=== PATIENT | male | born 1980 | race Asian ===

== ENCOUNTER 2018-10-09 21:12 | Observation (INO) | payer OTHER ==
[2018-10-09] MEDS ORDERED: NS 1,000 ML IV ONE (21:54)
[2018-10-09] MEDS ORDERED: MAG HYDROX/AL HYDROX/SIMETH 30 ML UDCUP PO ONE (21:54)
[2018-10-09] MEDS ORDERED: LIDOCAINE 2% VISCOUS 15 ML UDCUP PO ONE (21:54)
[2018-10-09] MEDS ORDERED: ONDANSETRON 4 MG/2 ML VIAL IVP ONE (21:54)
[2018-10-09] MEDS ORDERED: HYOSCYAMINE SULFATE 0.125 MG TAB PO ONE (21:54)
--- NOTE | 2018-10-09 21:57 | EDPHY ---
H & P Stated Complaint: sent from .3days of N/V and abd pain.Constipation improved after colace Time Seen by Provider: 10/09/18 21:56 HPI/ROS: HPI CHIEF COMPLAINT: Abdominal pain HISTORY OF PRESENT ILLNESS: Patient is a 38-year-old male, otherwise healthy, presents emergency with abdominal pain. Patient reports epigastric right upper quadrant abdominal pain. He states this started Tuesday night he went out to dinner and had multiple drinks and ate a fish meal, he states that night when he got home he felt nauseous and had vomiting multiple times. Denies any chest pain or shortness of breath, denies fever, he thought he was constipated. He took Colace. He did have a bowel movement however continues to have intermittent abdominal pain. It is worse after he eats. Past Medical History: No significant medical history Past Surgical History: Denies significant surgical history Social History: Occasional alcohol use, denies illicit drugs or tobacco. 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 Exam Constitutional triage nursing summary reviewed, vital signs reviewed, awake/ alert. Eyes normal conjunctivae and sclera, EOMI, PERRLA. HENT normal inspection, atraumatic, moist mucus membranes, no epistaxis, neck supple/ no meningismus, no raccoon eyes. Respiratory clear to auscultation bilaterally, normal breath sounds, no respiratory distress, no wheezing. Cardiovascular rate normal, regular rhythm, no murmur, no edema, distal pulses normal. Gastrointestinal mildly tender in the epigastric right upper quadrant, no rebound, no guarding, normal bowel sounds, no distension, no pulsatile mass. Genitourinary no CVA tenderness. Musculoskeletal no midline vertebral tenderness, full range of motion, no calf swelling, no tenderness of extremities, no meningismus, good pulses, neurovascularly intact. Skin pink, warm, & dry, no rash, skin atraumatic. Neurologic awake, alert and oriented x 3, AAOx3, moves all 4 extremities equally, motor intact, sensory intact, CN II-XII intact, normal cerebellar, normal vision, normal speech. Psychiatric normal mood/affect. Heme/Lymph/Immune no lymphadenopathy. Differential Diagnosis: Differential diagnosis includes but is not limited to and in no particular order: Bowel obstruction, appendicitis, gallbladder disease, diverticulitis, colitis, enteritis, perforated viscus, gastritis, GERD , esophagitis, urinary tract infection, pyelonephritis, kidney stones Medical Decision Making: Plan for this patient IV establishment IV fluid bolus , basic labs, GI cocktail, ultrasound right upper quadrant re-evaluate. Re-evaluation: Ultrasound abdomen shows no evidence of acute inflammatory process called to me by Dr. Membreno. CT scan abdomen pelvis with IV contrast faxed me by direct Radiology Shows multiple fluid-filled mildly dilated 3.3 cm of a loops of this proximal small bowel in the left upper lower quadrants no cause for obstruction is seen consider enteritis Additionally small volume ascites in the pelvis Appendix not visualized. Patient re-evaluated 12:02 a.m. Still has ongoing abdominal pain with nausea but no vomiting. Discussed lab work and CT imaging with him plan for admission the hospital tonight for observation for possible small bowel obstruction versus enteritis. I have consult Dr. Hall, agrees to admit. Patient updated, agrees for admssion. SBO vs. Ileus/enteritis. Not vomiting here. Dr. Hall has seen and evaluated the patient. Plan for admission tonight. Believes this to be ileus/enteritis, less likely sbo. Source: Patient - Personal History Current Tetanus/Diphtheria Vaccine: Yes Current Tetanus Diphtheria and Acellular Pertussis (TDAP): Yes - Medical/Surgical History Hx Asthma: No Hx Chronic Respiratory Disease: No Hx Diabetes: No Hx Cardiac Disease: No Hx Renal Disease: No Hx Cirrhosis: No Hx Alcoholism: No Hx HIV/AIDS: No Hx Splenectomy or Spleen Trauma: No Other PMH: occasional perianal abscess including incision and drainage - Social History Smoking Status: Never smoked Constitutional: Initial Vital Signs Temperature (C) 36.6 C 10/09/18 21:16 Heart Rate 72 10/09/18 21:16 Respiratory Rate 20 10/09/18 21:16 Blood Pressure 134/80 H 10/09/18 21:16 O2 Sat (%) 95 10/09/18 21:16 O2 Delivery Mode Room Air Allergies/Adverse Reactions: cat dander Allergy (Verified 10/10/18 09:36) Home Medications: Medication Instructions Recorded Herbals/Supplements -Info Only 1 ea PO DAILY 10/10/18 Medical Decision Making - Data Points Laboratory Results: Laboratory Results 10/09/18 21:50 10/09/18 21:50 Medications Given: Discontinued Medications Acetaminophen (Tylenol) 650 mg PO Q4HRS PRN PRN Reason: Pain, Mild/Fever, Can Take PO Stop: 04/08/19 00:18 Last Admin: 10/10/18 15:29 Dose: 650 mg Al Hydroxide/Mg Hydroxide (Maalox Susp) 30 ml PO ONCE ONE Stop: 10/09/18 21:55 Last Admin: 10/09/18 21:59 Dose: 30 ml Hyoscyamine Sulfate (Levsin, Hyomax-Sl) 0.25 mg PO ONCE ONE Stop: 10/09/18 21:55 Last Admin: 10/09/18 21:59 Dose: 0.25 mg Sodium Chloride (Ns) 1,000 mls @ 0 mls/hr IV EDNOW ONE; Wide Open PRN Reason: Protocol Stop: 10/09/18 21:55 Last Admin: 10/09/18 22:00 Dose: 1,000 mls Sodium Chloride (Ns) 1,000 mls @ 0 mls/hr IV ONCE ONE PRN Reason: Wide Open Stop: 10/10/18 00:02 Last Admin: 10/10/18 00:19 Dose: 1,000 mls Sodium Chloride (Ns) 1,000 mls @ 125 mls/hr IV CONT RAQUEL Stop: 04/08/19 00:29 Last Admin: 10/10/18 09:05 Dose: 1,000 mls Lidocaine (Lidocaine 2% Viscous) 15 ml PO ONCE ONE Stop: 10/09/18 21:55 Last Admin: 10/09/18 21:59 Dose: 15 ml Ondansetron HCl (Zofran) 4 mg IVP EDNOW ONE Stop: 10/09/18 21:55 Last Admin: 10/09/18 21:59 Dose: 4 mg Senna/Docusate Sodium (Senokot-S) 1 - 2 tab PO BID RAQUEL PRN Reason: Protocol Stop: 04/08/19 12:44 Last Admin: 10/10/18 13:42 Dose: 2 tab Departure - Departure Disposition: [facility] Acute Clinical Impression: Abdominal pain Qualifiers: Abdominal location: generalized Qualified Code(s): R10.84 - Generalized abdominal pain Condition: Good
[2018-10-09 22:06] LABS: PLATELET COUNT 216 10^3/uL (150-400)
[2018-10-09] MEDS ORDERED: IOPAMIDOL (ISOVUE-300) 100 ML BTL ONE (23:07)
[2018-10-10] MEDS ORDERED: NS 1,000 ML IV ONE (00:01)
[2018-10-10] MEDS ORDERED: ONDANSETRON DISINTEGRATING 4 MG TAB PO PRN (00:19)
[2018-10-10] MEDS ORDERED: HYDROmorphONE/DILAUDID 1 MG/ML INJ IVP PRN (00:19)
[2018-10-10] MEDS ORDERED: ONDANSETRON 4 MG/2 ML VIAL IVP PRN (00:19)
[2018-10-10] MEDS ORDERED: IBUPROFEN 200 MG TAB PO PRN (00:19)
[2018-10-10] MEDS ORDERED: PROMETHAZINE HCL 25 MG/ML INJ IVP PRN (00:19)
--- NOTE | 2018-10-10 00:21 | PDGENHP ---
History and Physical - Chief Complaint abdominal pain with nausea - History of Present Illness Patient is an otherwise healthy 38yo M who presents with a 3 day history of abdominal pain. States that he ate some raw food Scott evening and ever since has felt unwell. He describes a LUQ gnawing type abdominal pain which has persisted through today and now associated with nausea. Given the fact that it has persisted, he presented to the ED for workup. He states that he is continuing to eat his normal diet, was constipated but took care of this was some laxatives and has been having diarrhea. 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 Systems Review of Systems: ROS: 10pt was reviewed & negative except for what was stated in HPI & below Physical Exam Physical Exam: Temp Pulse Resp BP Pulse Ox 36.6 C 68 16 101/59 L 96 10/09/18 22:55 10/09/18 22:55 10/09/18 22:55 10/09/18 22:55 10/09/18 22:55 Constitutional: no apparent distress, appears nourished, not in pain Eyes: PERRL, anicteric sclera, EOMI Ears, Nose, Mouth, Throat: moist mucous membranes, hearing normal, ears appear normal, no oral mucosal ulcers Cardiovascular: regular rate and rhythym, no murmur, rub, or gallop, No edema Respiratory: no respiratory distress, no rales or rhonchi, clear to auscultation Gastrointestinal: normoactive bowel sounds, other (TTP in LUQ, no rebound or guarding appreciated ) Genitourinary: no bladder fullness, no bladder tenderness Skin: warm, normal color, no rashes or abrasions, no fluctuance, no induration, No mottled Musculoskeletal: full muscle strength, no muscle tenderness, normal joint ROM, no joint effusions Psychiatric: interacting appropriately, not anxious, not encephalopathic, thought process linear Lymph, Heme, Immunologic: no cervical LAD, no supraclavicular LAD Lab Data & Imaging Review 10/09/18 21:50 10/09/18 21:50 WBC 10.66 10^3/uL (3.80-9.50) H 10/09/18 21:50 RBC 5.40 10^6/uL (4.40-6.38) 10/09/18 21:50 Hgb 15.0 g/dL (13.7-17.5) 10/09/18 21:50 Hct 45.1 % (40.0-51.0) 10/09/18 21:50 MCV 83.5 fL (81.5-99.8) 10/09/18 21:50 MCH 27.8 pg (27.9-34.1) L 10/09/18 21:50 MCHC 33.3 g/dL (32.4-36.7) 10/09/18 21:50 RDW 13.2 % (11.5-15.2) 10/09/18 21:50 Plt Count 216 10^3/uL (150-400) 10/09/18 21:50 MPV 9.3 fL (8.7-11.7) 10/09/18 21:50 Neut % (Auto) 59.3 % (39.3-74.2) 10/09/18 21:50 Lymph % (Auto) 33.7 % (15.0-45.0) 10/09/18 21:50 [place] % (Auto) 4.6 % (4.5-13.0) 10/09/18 21:50 Eos % (Auto) 1.8 % (0.6-7.6) 10/09/18 21:50 Baso % (Auto) 0.3 % (0.3-1.7) 10/09/18 21:50 Nucleat RBC Rel Count 0.0 % (0.0-0.2) 10/09/18 21:50 Absolute Neuts (auto) 6.33 10^3/uL (1.70-6.50) 10/09/18 21:50 Absolute Lymphs (auto) 3.59 10^3/uL (1.00-3.00) H 10/09/18 21:50 Absolute Monos (auto) 0.49 10^3/uL (0.30-0.80) 10/09/18 21:50 Absolute Eos (auto) 0.19 10^3/uL (0.03-0.40) 10/09/18 21:50 Absolute Basos (auto) 0.03 10^3/uL (0.02-0.10) 10/09/18 21:50 Absolute Nucleated RBC 0.00 10^3/uL (0-0.01) 10/09/18 21:50 Immature Gran % 0.3 % (0.0-1.1) 10/09/18 21:50 Immature Gran # 0.03 10^3/uL (0.00-0.10) 10/09/18 21:50 Sodium 138 mEq/L (135-145) 10/09/18 21:50 Potassium 4.1 mEq/L (3.5-5.2) 10/09/18 21:50 Chloride 104 mEq/L (97-110) 10/09/18 21:50 Carbon Dioxide 25 mEq/l (22-31) 10/09/18 21:50 Anion Gap 9 mEq/L (6-14) 10/09/18 21:50 BUN 10 mg/dL (7-23) 10/09/18 21:50 Creatinine 0.9 mg/dL (0.7-1.3) 10/09/18 21:50 Estimated GFR > 60 10/09/18 21:50 Glucose 100 mg/dL (70-100) 10/09/18 21:50 Calcium 9.2 mg/dL (8.5-10.4) 10/09/18 21:50 Total Bilirubin 0.6 mg/dL (0.1-1.4) 10/09/18 21:50 Conjugated Bilirubin 0.2 mg/dL (0.0-0.5) 10/09/18 21:50 Unconjugated Bilirubin 0.4 mg/dL (0.0-1.1) 10/09/18 21:50 AST 20 IU/L (17-59) 10/09/18 21:50 ALT 47 IU/L (21-72) 10/09/18 21:50 Alkaline Phosphatase 52 IU/L (38-126) 10/09/18 21:50 Total Protein 6.7 g/dL (6.3-8.2) 10/09/18 21:50 Albumin 4.0 g/dL (3.5-5.0) 10/09/18 21:50 Lipase 71 IU/L (23-300) 10/09/18 21:50 Urine Color YELLOW 10/09/18 22:10 Urine Appearance CLEAR 10/09/18 22:10 Urine pH 6.0 (5.0-7.5) 10/09/18 22:10 Ur Specific [place] 1.021 (1.002-1.030) 10/09/18 22:10 Urine Protein NEGATIVE (NEGATIVE) 10/09/18 22:10 Urine Ketones NEGATIVE (NEGATIVE) 10/09/18 22:10 Urine Blood NEGATIVE (NEGATIVE) 10/09/18 22:10 Urine Nitrate NEGATIVE (NEGATIVE) 10/09/18 22:10 Urine Bilirubin NEGATIVE (NEGATIVE) 10/09/18 22:10 Urine Urobilinogen NEGATIVE EU (0.2-1.0) 10/09/18 22:10 Ur Leukocyte Esterase NEGATIVE (NEGATIVE) 10/09/18 22:10 Urine Glucose NEGATIVE (NEGATIVE) 10/09/18 22:10 Visualized and Interpreted imaging results: Yes Interpretation: CT: some dilated, fluid filled SB loops, no transition Assessment & Plan Assessment: Abdominal pain (Acute) Plan: 38yo male with enteritis, possible SBO - plan will be to admit for pain control and hydration - ok for clear liquids - NS IVF - PO and IV pain meds - will re-eval in AM. If pain improved will ADAT and see how he does, anticipate just one night in house
[2018-10-10] MEDS: NS 1,000 ML IV SCH ×2 (01:08→09:05)
[2018-10-10] MEDS: ACETAMINOPHEN 325 MG TAB PO PRN ×3 (01:14→15:29)
[2018-10-10] MEDS ORDERED: POLYETHYLENE GLYCOL 3350 17 GM PKT PO PRN (12:27)
[2018-10-10] MEDS ORDERED: BISACODYL 10 MG SUPP PR PRN (12:27)
[2018-10-10] MEDS ORDERED: MAGNESIUM HYDROXIDE 30 ML UDCUP PO PRN (12:27)
[2018-10-10] MEDS ORDERED: SENNOSIDES/DOCUSATE SODIUM TAB PO SCH ×2 (12:45→21:00)
--- NOTE | 2018-10-10 12:53 | SOAPPROG ---
SOAP Progress Note Assessment/Plan: Assessment: 38yo M likely enteritis - feels a little better, still some discomfort - tolerated clears this AM, wants to try real food - ADAT - will see if he is ready for dc later today versus tomorrow. Making clinicla progress Plan: 10/10/18 12:53 Subjective: feels a little better Objective: Vital Signs Temp Pulse Resp BP Pulse Ox 36.5 C 61 17 110/70 96 10/10/18 07:53 10/10/18 07:53 10/10/18 07:53 10/10/18 07:53 10/10/18 07:53 10/09/18 10/10/18 10/11/18 05:59 05:59 05:59 Intake Total 2750 Output Total 525 700 Balance 2225 -700 ICD10 Worksheet Patient Problems: Problems Problem Status Onset Abdominal pain Acute
[2018-10-10 16:22] VITALS: BP 127/83
== END 2018-10-10 16:33 | disposition home or self-care (01) ==
LOC: F3E 10-10 00:58
PROVIDERS: ADMIT Surgery; ATTEND Surgery
DX: K52.9 Noninfective gastroenteritis and colitis, unspecified (principal); R10.11 Right upper quadrant pain; E86.9 Volume depletion, unspecified
CPT/HCPCS: 74177; 76705; 96361; 96374; 99285; G0378; J2405; Q9967